=== PATIENT | female | born 1970 | race Caucasian/White ===

== ENCOUNTER → 2016-06-21 | Outpatient (CLI) | payer BC ==
--- NOTE | 2016-06-22 14:23 | MR ---
EXAM DATE: 06/21/16 PATIENT'S AGE: 46 Patient: NAIF EVERETT Facility: [facility] Site . Site : 1970 Study: MRI-Spine Cervical [id number] 11:21:31 AM Ordering Physician: Josef Mata Final Report: Indication: Neck pain. Comparison: Radiograph 06/08/2016. Technique: Sagittal T1, T2 and STIR sequences. Axial T2 gradient sequences. Findings: Straightening of the normal cervical lordosis which may be due to muscle spasm or patient positioning. Otherwise, normal vertebral body facet alignment. No fractures. No vertebral body loss of height. No spondylolisthesis. No ligamentous injury. Normal marrow signal. Normal cord signal. The visualized brainstem and cerebellum appear normal. C2-3: No spinal canal or neural foraminal narrowing. C3-4: Posterior disk bulge with no narrowing of the spinal canal. Uncovertebral facet joint hypertrophy results in mild narrowing of the left neural foramen. No narrowing of the right neural foramen. C4-5: No spinal canal narrowing. No neural foraminal narrowing. C5-6: Disc degeneration with broad-based disc osteophyte complex. Mild narrowing of spinal canal. Moderate bilateral neural foraminal narrowing with possible impingement of the C6 nerve roots. C6-7: Disc degeneration with broad-based disc osteophyte complex. Mild narrowing of left neural foramen. No narrowing of the right neural foramen. C7-T1: No spinal canal or neural foraminal narrowing. No spinal canal or neural foraminal narrowing in the visualized upper thoracic spine. Impression: 1. Straightening of the normal cervical lordosis. Otherwise, normal alignment. No fractures. No spondylolisthesis. 2. At C3-4, mild narrowing of the left neural foramen 3. At C5-6, mild narrowing of the spinal canal. Moderate bilateral foraminal narrowing with possible impingement of the C6 nerve roots 4. At C6-7, mild narrowing of the left neural foramen Dictated by Efren Reyes MD @ Jun 22 2016 8:59AM Signed by: Efren Reyes MD @06/22/2016 9:03:55 AM (Electronic Signature) Report Signed by Proxy and Original Signed Document filed in the Medical Record. [facility]
== END ==
LOC: MW.MRI 10:19
PROVIDERS: ATTEND Emergency Medicine
DX: M54.2 Cervicalgia (principal); M50.30 Other cervical disc degeneration, unspecified cervical region; M50.322 Other cervical disc degeneration at C5-C6 level
CPT/HCPCS: 72141; 72141-26

== ENCOUNTER 2018-07-09 07:46 | Day surgery (SDC) | payer BC ==
[~2018-07-09 07:46] MED LIST: Lactated Ringers 1,000 ML IV SCH; Sodium Chloride 0.9% 10 ML SDV IV PRN; Sodium Chloride 0.9% 10 ML Syringe FLUSH PRN; Sodium Chloride 0.9% 2.5 ML Syringe FLUSH PRN
--- NOTE | 2018-07-09 09:14 | PCM.PREANE ---
Preanesthetic Assessment - Anesthesia/Transfusion/Family Hx Anesthesia History: Prior Anesthesia Without Reaction Family History of Anesthesia Reaction: No Transfusion History: No Prior Transfusion(s) Intubation History: Unknown - Review of Systems General: No Symptoms Pulmonary: No Symptoms Cardiovascular: No Symptoms Gastrointestinal: Constipation Neurological: No Symptoms Other: Reports: None - Physical Assessment O2 Sat by Pulse Oximetry: 98 Respiratory Rate: 16 Vital Signs: Last Vital Signs Temp 36.1 C 07/09/18 08:10 Pulse 110 H 07/09/18 08:10 Resp 16 07/09/18 08:10 BP 95/63 07/09/18 08:10 Pulse Ox 98 07/09/18 08:10 Height: 1.63 m Weight: 62.596 kg ASA Class: 2 Mental Status: Alert & Oriented x3 Airway Class: Mallampati = 2 Dentition: Reports: Normal Dentition Thyro-Mental Finger Breadths: 3 Mouth Opening Finger Breadths: 3 ROM/Head Extension: Full Lungs: Clear to Auscultation, Normal Respiratory Effort Cardiovascular: Regular Rate, Regular Rhythm - Lab Values: Laboratory Last Values Urine HCG, Qual NEGATIVE (NEGATIVE) 07/09/18 08:00 - Allergies Allergies/Adverse Reactions: Allergies Allergy/AdvReac Type Severity Reaction Status Date / Time SEASONAL Allergy Sneezing Uncoded 07/03/18 15:26 - Blood Blood Available: No - Anesthesia Plan Pre-Op Medication Ordered: None - Acknowledgements Anesthesia Type Planned: MAC Pt an Appropriate Candidate for the Planned Anesthesia: Yes Alternatives and Risks of Anesthesia Discussed w Pt/Guardian: Yes Pt/Guardian Understands and Agrees with Anesthesia Plan: Yes PreAnesthesia Questionnaire HEENT History: Reports: Allergic Rhinitis, Other (See Below) Other HEENT History: wears glasses Cardiovascular History: Reports: Hypertension Respiratory History: Reports: None Gastrointestinal History: Reports: None Genitourinary History: Reports: None 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: Musculoskeletal History: Reports: Arthritis, Back Pain, Chronic Neurological History: Reports: Headaches, Chronic Psychiatric History: Reports: Anxiety (mild), Other (See Below) (claustrophobia) Endocrine/Metabolic History: Reports: Hypothyroidism Hematologic History: Reports: None Immunologic History: Reports: None Oncologic (Cancer) History: Reports: None Dermatologic History: Reports: None - Past Surgical History Head Surgeries/Procedures: Reports: None HEENT Surgical History: Reports: None Cardiovascular Surgical History: Reports: None Respiratory Surgical History: Reports: None GI Surgical History: Reports: None Female Surgical History: Reports: LEEP, Other (See Below) (IUD placement) Endocrine Surgical History: Reports: None Neurological Surgical History: Reports: C-Spine Other Neurological Surgeries/Procedures: ACDF Musculoskeletal Surgical History: Reports: None Oncologic Surgical History: Reports: None Dermatological Surgical History: Reports: None - SUBSTANCE USE Smoking Status *Q: Former Smoker Recreational Drug Use History: No - HOME MEDS Home Medications: Home Meds Cetirizine [ZyrTEC] 10 mg PO DAILY PRN 07/03/18 [History] Cyclobenzaprine HCl 0.5 - 1 tab PO ASDIRECTED PRN 07/03/18 [History] Levothyroxine Sodium [Synthroid] 112 mcg PO DAILY 07/03/18 [History] Metoprolol Succinate 25 mg PO DAILY 07/03/18 [History] Polyethylene Glycol 3350 [MiraLAX] 1 dose PO ASDIRECTED PRN 07/03/18 [History] traMADol HCl [Tramadol HCl] 1 - 2 tab PO ASDIRECTED PRN 07/03/18 [History] - CURRENT (IN HOUSE) MEDS Current Meds: Current Medications Lactated Ringer's (Ringers, Lactated) 1,000 mls @ 125 mls/hr IV ASDIRECTED [facility] Last Admin: 07/09/18 08:38 Dose: 125 mls/hr Sodium Chloride (Saline Flush) 10 ml FLUSH ASDIRECTED PRN PRN Reason: Keep Vein Open Sodium Chloride (Saline Flush) 2.5 ml FLUSH ASDIRECTED PRN PRN Reason: Keep Vein Open Sodium Chloride (Saline Flush) 10 ml FLUSH ASDIRECTED PRN PRN Reason: Keep Vein Open Sodium Chloride (Saline Flush) 2.5 ml FLUSH ASDIRECTED PRN PRN Reason: Keep Vein Open Sodium Chloride (Normal Saline) 10 ml IV ASDIRECTED PRN PRN Reason: IV Use
[2018-07-09] MEDS ORDERED: Propofol 200 MG/20 ML SDV ONE (10:27)
[2018-07-09] MEDS ORDERED: fentaNYL 100 MCG/2 ML SDV ONE (10:28)
[2018-07-09] MEDS ORDERED: Midazolam 1 MG/ML 2 ML SDV ONE (10:28)
[2018-07-09] MEDS ORDERED: Lidocaine 2% 5 ML SDV ONE (10:28)
--- NOTE | 2018-07-09 11:13 | PCM.OPNOTE ---
<Jessica Mathis - Last Filed: 07/09/18 11:12> - General Post-Op/Procedure Note Date of Surgery/Procedure: 07/09/18 Operative Procedure(s): colonoscopy Findings: Normal colonoscopy. Pre Op Diagnosis: Change in bowel habits Post-Op Diagnosis: Change in bowel habits Anesthesia Technique: MAC Primary Surgeon: Edilia Lozano Dial Lathe Operator: Jessica Mathis Condition: Good <Edilia Lozano - Last Filed: 07/09/18 11:16> - General Post-Op/Procedure Note Post-Op Diagnosis: Transverse colon polyp
--- NOTE | 2018-07-09 11:36 | PCM.POSTAN ---
POST ANESTHESIA ASSESSMENT - MENTAL STATUS Mental Status: Alert, Oriented - RESPIRATORY Respiratory Status: Respiratory Rate WNL, Airway Patent, O2 Saturation Stable - CARDIOVASCULAR CV Status: Pulse Rate WNL, Blood Pressure Stable - GASTROINTESTINAL GI Status: No Symptoms - PAIN Pain Score: 0 - POST OP HYDRATION Hydration Status: Adequate & Stable - OBSERVATIONS Free Text/Narrative:: Pt denies any pain.
--- NOTE | 2018-07-09 23:46 | OR ---
SURGEON: ELIANA IBARRA MD DATE OF PROCEDURE: 07/09/2018 PREOPERATIVE DIAGNOSIS: Change in bowel habits. POSTOPERATIVE DIAGNOSIS: Transverse colon polyp. ANESTHESIA: MAC. INSTRUMENT USED: Olympus colonoscope. EXTENT OF EXAM: To the cecum. PREPARATION: Good. LIMITATIONS: None. INDICATION FOR EXAMINATION: The patient is a 48-year-old female, who presents with a change in her bowel habits. Given this, we discussed the need for diagnostic colonoscopy. I explained the procedure, expected perioperative course, and risks including bleeding, infection, or damage to surrounding structures including perforation. The patient verbalized understanding and wishes to proceed. PROCEDURE IN DETAIL: The patient was brought to the endoscopy suite and placed in a left lateral decubitus position. A time-out was completed verifying the patient's name, age, date of , allergies, and procedure to be performed. Monitored anesthesia care was induced and continuous oxygen was provided via nasal cannula throughout the procedure. After adequate sedation was achieved, a digital rectal exam was performed. This exam was within normal limits. A well lubricated colonoscope was inserted in the rectum and advanced under direct visualization to the level of the cecum. The cecum was identified by both visual and anatomic landmarks. A photograph was taken of the cecal cap, however, I was unable to retroflex the scope within the cecum given the looping of the scope more proximally. The scope was then straightened out and fully withdrawn while examining the color, texture, anatomy, and integrity of the mucosa from the cecum to the anal canal. In the distal transverse colon, a small sessile polyp was noted. This was removed in piecemeal fashion using a cold biopsy forceps. The remainder of the colon was normal. The scope was brought into the rectum and retroflexed to allow visualization of the anal canal opening. This appeared normal and a photograph was taken. The scope was then straightened out and fully withdrawn. The cecum to anus time was 7 minutes. The patient tolerated the procedure well and transferred to the PACU in stable condition. ENDOSCOPIC DIAGNOSIS: Transverse colon polyp. RECOMMENDATIONS: Follow up in clinic in 2 weeks. CASIE HUMPHRIES /[id number]
== END 2018-07-09 12:30 | disposition home or self-care (01) ==
LOC: MW.SDS 07:46
PROVIDERS: ATTEND Surgery
DX: K59.00 Constipation, unspecified (principal); D12.3 Benign neoplasm of transverse colon; I10 Essential (primary) hypertension; E03.9 Hypothyroidism, unspecified; F41.9 Anxiety disorder, unspecified; Z87.891 Personal history of nicotine dependence; Z79.890 Hormone replacement therapy; Z79.899 Other long term (current) drug therapy
CPT/HCPCS: 45380; 81025; J2001; J2250; J2704; J3010; J7120; 88305

== ENCOUNTER 2019-11-20 10:40 | Day surgery (SDC) | payer BC, SELFPAY ==
[2019-11-20] MEDS ORDERED: fentaNYL 100 MCG/2 ML SDV ONE (11:46)
[2019-11-20] MEDS ORDERED: Midazolam 1 MG/ML 2 ML SDV ONE (11:46)
[2019-11-20] MEDS ORDERED: Propofol 200 MG/20 ML SDV ONE (11:46)
[2019-11-20] MEDS ORDERED: Lidocaine 2% 5 ML SDV ONE (11:47)
--- NOTE | 2019-11-20 11:54 | PCM.PREANE ---
Preanesthetic Assessment - Anesthesia/Transfusion/Family Hx Anesthesia History: Prior Anesthesia Without Reaction Family History of Anesthesia Reaction: No Transfusion History: No Prior Transfusion(s) Intubation History: Unknown - Review of Systems General: No Symptoms Pulmonary: No Symptoms Cardiovascular: No Symptoms Neurological: No Symptoms Other: Reports: None - Physical Assessment NPO Status Date: 11/20/19 NPO Status Time: 08:00 Vital Signs: Last Vital Signs Temp 99.3 F 11/20/19 10:40 Pulse 79 11/20/19 10:40 Resp 16 11/20/19 10:40 BP 125/85 11/20/19 10:40 Pulse Ox 97 11/20/19 10:40 Height: 5 ft 3 in Weight: 63.957 kg ASA Class: 2 Mental Status: Alert & Oriented x3 Airway Class: Mallampati = 2 Dentition: Reports: Normal Dentition ROM/Head Extension: Full Lungs: Clear to Auscultation, Normal Respiratory Effort Cardiovascular: Regular Rate, Regular Rhythm - Lab Values: Laboratory Last Values Urine HCG, Qual NEGATIVE (NEGATIVE) 11/20/19 10:46 - Allergies Allergies/Adverse Reactions: Allergies Allergy/AdvReac Type Severity Reaction Status Date / Time SEASONAL Allergy Sneezing Uncoded 11/14/19 12:49 - Blood Blood Available: No - Anesthesia Plan Pre-Op Medication Ordered: None - Acknowledgements Anesthesia Type Planned: General Anesthesia (tiva) Pt an Appropriate Candidate for the Planned Anesthesia: Yes Alternatives and Risks of Anesthesia Discussed w Pt/Guardian: Yes Pt/Guardian Understands and Agrees with Anesthesia Plan: Yes PreAnesthesia Questionnaire HEENT History: Reports: Allergic Rhinitis, Other (See Below) Other HEENT History: wears glasses Cardiovascular History: Reports: Hypertension Respiratory History: Reports: None Other Respiratory History: denies any lung problems, has a prescribed inhaler for cough Gastrointestinal History: Reports: None Other Gastrointestinal History: c/o nausea Genitourinary History: Reports: None 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: Musculoskeletal History: Reports: Arthritis, Back Pain, Chronic Other Musculoskeletal History: DDD Neurological History: Reports: Headaches, Chronic Psychiatric History: Reports: Anxiety, Other (See Below) Endocrine/Metabolic History: Reports: Hypothyroidism Hematologic History: Reports: None Immunologic History: Reports: None Oncologic (Cancer) History: Reports: None Dermatologic History: Reports: None - Past Surgical History Head Surgeries/Procedures: Reports: None HEENT Surgical History: Reports: None Cardiovascular Surgical History: Reports: None Respiratory Surgical History: Reports: None GI Surgical History: Reports: None Female Surgical History: Reports: LEEP, Other (See Below) Endocrine Surgical History: Reports: None Neurological Surgical History: Reports: C-Spine Other Neurological Surgeries/Procedures: ACDF Musculoskeletal Surgical History: Reports: None Oncologic Surgical History: Reports: None Dermatological Surgical History: Reports: None - SUBSTANCE USE Smoking Status *Q: Former Smoker Tobacco Use Within Last Twelve Months: No - HOME MEDS Home Medications: Home Meds Cetirizine [ZyrTEC] 10 mg PO DAILY PRN 07/03/18 [History] Cyclobenzaprine HCl 2 tab PO ASDIRECTED PRN 07/03/18 [History] Levothyroxine Sodium [Synthroid] 137 mcg PO DAILY 07/03/18 [History] Metoprolol Succinate 25 mg PO DAILY 07/03/18 [History] polyethylene glycoL 3350 [MiraLAX] 1 dose PO ASDIRECTED PRN 07/03/18 [History] traMADol HCl [Tramadol HCl] 1 - 2 tab PO ASDIRECTED PRN 07/03/18 [History] Hydrochloride 4 mg PO ASDIRECTED PRN 11/14/19 [History] Meloxicam 15 mg PO DAILY 11/14/19 [History] Omeprazole 20 mg PO DAILY 11/14/19 [History] SUMAtriptan succinate [Imitrex] 100 mg PO ASDIRECTED PRN 11/14/19 [History] traZODone HCl [Trazodone HCl] 1 - 2 tab PO BEDTIME PRN 11/14/19 [History] - CURRENT (IN HOUSE) MEDS Current Meds: Current Medications Lactated Ringer's (Ringers, Lactated) 1,000 mls @ 125 mls/hr IV ASDIRECTED [facility] Last Admin: 11/20/19 11:07 Dose: 125 mls/hr Documented by: Sodium Chloride (Saline Flush) 10 ml FLUSH ASDIRECTED PRN PRN Reason: Keep Vein Open Sodium Chloride (Saline Flush) 2.5 ml FLUSH ASDIRECTED PRN PRN Reason: Keep Vein Open Sodium Chloride (Saline Flush) 10 ml FLUSH ASDIRECTED PRN PRN Reason: Keep Vein Open Sodium Chloride (Saline Flush) 2.5 ml FLUSH ASDIRECTED PRN PRN Reason: Keep Vein Open Sodium Chloride (Normal Saline) 10 ml IV ASDIRECTED PRN PRN Reason: IV Use Discontinued Medications Fentanyl (Sublimaze) Confirm Administered Dose 100 mcg .ROUTE .STK-MED ONE Stop: 11/20/19 11:47 Lidocaine (Xylocaine-Mpf 2%) Confirm Administered Dose 5 ml .ROUTE .STK-MED ONE Stop: 11/20/19 11:48 Midazolam HCl (Versed 1 Mg/Ml) Confirm Administered Dose 2 mg .ROUTE .STK-MED ONE Stop: 11/20/19 11:47 Propofol (Diprivan 20 Ml) Confirm Administered Dose 200 mg .ROUTE .STK-MED ONE Stop: 11/20/19 11:47
--- NOTE | 2019-11-20 13:26 | PCM.OPNOTE ---
- General Post-Op/Procedure Note Date of Surgery/Procedure: 11/20/19 Operative Procedure(s): Diagnostic EGD Findings: normal appearing egd Pre Op Diagnosis: History of h. pylori, nausea Post-Op Diagnosis: same Anesthesia Technique: MAC Primary Surgeon: Edilia Lozano Condition: Good
--- NOTE | 2019-11-20 13:45 | PCM.POSTAN ---
POST ANESTHESIA ASSESSMENT - MENTAL STATUS Mental Status: Alert, Oriented - VITAL SIGNS Vital Signs: Last Vital Signs Temp 98.4 F 11/20/19 13:19 Pulse 86 11/20/19 13:36 Resp 11 L 11/20/19 13:36 BP 124/82 11/20/19 13:36 Pulse Ox 95 11/20/19 13:36 - RESPIRATORY Respiratory Status: Respiratory Rate WNL, Airway Patent, O2 Saturation Stable - CARDIOVASCULAR CV Status: Pulse Rate WNL, Blood Pressure Stable - GASTROINTESTINAL GI Status: No Symptoms - POST OP HYDRATION Hydration Status: Adequate & Stable
--- NOTE | 2019-11-20 13:45 | PCM48HPAN ---
Post Anesthesia Note - EVALUATION WITHIN 48HRS OF ANESTHETIC Vital Signs in Normal Range: Yes Patient Participated in Evaluation: Yes Respiratory Function Stable: Yes Airway Patent: Yes Cardiovascular Function Stable: Yes Hydration Status Stable: Yes Pain Control Satisfactory: Yes Nausea and Vomiting Control Satisfactory: Yes Mental Status Recovered: Yes Vital Signs: Last Vital Signs Temp 98.4 F 11/20/19 13:19 Pulse 86 11/20/19 13:36 Resp 11 L 11/20/19 13:36 BP 124/82 11/20/19 13:36 Pulse Ox 95 11/20/19 13:36
--- NOTE | 2019-11-21 17:14 | OR ---
SURGEON: EDILIA LOZANO MD DATE OF PROCEDURE: 11/20/2019 PREOPERATIVE DIAGNOSIS: History of Helicobacter pylori. POSTOPERATIVE DIAGNOSIS: History of Helicobacter pylori. PROCEDURE PERFORMED: Diagnostic esophagogastroduodenoscopy with biopsy. PRIMARY SURGEON: Edilia Lozano MD ANESTHESIA: MAC. INSTRUMENT USED: Olympus endoscope. EXTENT OF EXAM: To the second portion of duodenum. PREPARATION: Good. LIMITATIONS: None. INDICATIONS FOR EXAMINATION: The patient is a 49-year-old female who presented to clinic status post H. pylori treatment. She continues to have malaise, nausea, and upper abdominal discomfort. The decision was made to proceed with diagnostic EGD. The patient and I discussed the procedure, expected perioperative course, and the risks. She verbalized understanding and wishes to proceed. PROCEDURE IN DETAIL: The patient was brought into the endoscopy suite and placed in a beach chair position. A time-out was completed verifying the patient's name, age, date of , allergies, and procedure to be performed. Monitored anesthesia care was induced and a bite block was placed in the patient's mouth. Continuous oxygen was provided via nasal cannula throughout the procedure. After adequate sedation was achieved, a well-lubricated endoscope was placed in the patient's mouth and advanced under direct visualization to the second portion of the duodenum. This appeared normal and a photograph was taken. The scope was then fully withdrawn while examining the color, texture, anatomy, and integrity of the mucosa of the upper GI tract. The duodenum appeared normal. The scope was brought into the stomach and a photograph was taken of the pylorus and GE junction. Both appeared normal. The gastric mucosa was free of ulceration or gross inflammation. Biopsies were taken of the gastric antrum, body, and fundus and sent for histologic review and H. pylori testing. The scope was then brought into the distal esophagus and a photograph was taken of the Z-line. This appeared normal and a photograph was taken. The scope was then fully withdrawn. The remainder of the esophageal mucosa was free of pathology. The scope was removed and the procedure terminated. The patient tolerated the procedure well and was transferred to the PACU in stable condition. ENDOSCOPIC DIAGNOSIS: History of Helicobacter pylori. RECOMMENDATIONS: We will follow up in clinic in 2 weeks to discuss her biopsy results and begin workup for biliary pathology. CASIE / YANDEL /[id number]
== END 2019-11-20 14:00 | disposition home or self-care (01) ==
LOC: MW.SDS 10:40
PROVIDERS: ATTEND Surgery
DX: K29.50 Unspecified chronic gastritis without bleeding (principal); D50.0 Iron deficiency anemia secondary to blood loss (chronic); G56.03 Carpal tunnel syndrome, bilateral upper limbs; I10 Essential (primary) hypertension; E03.9 Hypothyroidism, unspecified; G47.00 Insomnia, unspecified; F41.9 Anxiety disorder, unspecified; Z79.899 Other long term (current) drug therapy; Z87.891 Personal history of nicotine dependence; Z86.19 Personal history of other infectious and parasitic diseases
CPT/HCPCS: 43239; 81025; 88305; 88312; J2001; J2250; J2704; J3010; J7120

== ENCOUNTER 2019-12-25 09:20 | Day surgery (SDC) | payer BC ==
[~2019-12-25 09:20] MED LIST changes: +ceFAZolin 2 GM in Premix Bag 1 BAG IV ONE
--- NOTE | 2019-12-25 10:15 | PCM.PREANE ---
Preanesthetic Assessment - Anesthesia/Transfusion/Family Hx Anesthesia History: Prior Anesthesia Without Reaction Family History of Anesthesia Reaction: No Transfusion History: No Prior Transfusion(s) Intubation History: Unknown - Review of Systems General: No Symptoms Pulmonary: No Symptoms Cardiovascular: No Symptoms Gastrointestinal: Nausea, Other (biliary diskenisia) Neurological: No Symptoms Other: Reports: None - Physical Assessment Height: 5 ft 3 in Weight: 63.957 kg ASA Class: 2 Mental Status: Alert & Oriented x3 Airway Class: Mallampati = 1 Dentition: Reports: Normal Dentition Thyro-Mental Finger Breadths: 3 Mouth Opening Finger Breadths: 3 ROM/Head Extension: Full Lungs: Clear to Auscultation, Normal Respiratory Effort Cardiovascular: Regular Rate, Regular Rhythm - Allergies Allergies/Adverse Reactions: Allergies Allergy/AdvReac Type Severity Reaction Status Date / Time SEASONAL Allergy Sneezing Uncoded 11/14/19 12:49 - Blood Blood Available: No - Anesthesia Plan Pre-Op Medication Ordered: None - Acknowledgements Anesthesia Type Planned: General Anesthesia Pt an Appropriate Candidate for the Planned Anesthesia: Yes Alternatives and Risks of Anesthesia Discussed w Pt/Guardian: Yes Pt/Guardian Understands and Agrees with Anesthesia Plan: Yes PreAnesthesia Questionnaire HEENT History: Reports: Allergic Rhinitis, Other (See Below) Other HEENT History: wears glasses Cardiovascular History: Reports: Hypertension Respiratory History: Reports: Other (See Below) Other Respiratory History: denies any lung problems, has a prescribed inhaler for cough Gastrointestinal History: Reports: Colon Polyp, Gastritis, Other (See Below) Other Gastrointestinal History: biliary dyskinesia Genitourinary History: Reports: None 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: Musculoskeletal History: Reports: Arthritis, Back Pain, Chronic Other Musculoskeletal History: DDD Neurological History: Reports: Migraines Psychiatric History: Reports: Anxiety Endocrine/Metabolic History: Reports: Hypothyroidism Hematologic History: Reports: None Immunologic History: Reports: None Oncologic (Cancer) History: Reports: None Dermatologic History: Reports: None - Past Surgical History Head Surgeries/Procedures: Reports: None HEENT Surgical History: Reports: None Cardiovascular Surgical History: Reports: None Respiratory Surgical History: Reports: None GI Surgical History: Reports: Colonoscopy, EGD Female Surgical History: Reports: LEEP Endocrine Surgical History: Reports: None Neurological Surgical History: Reports: C-Spine Other Neurological Surgeries/Procedures: cervical fusion Musculoskeletal Surgical History: Reports: None Oncologic Surgical History: Reports: None Dermatological Surgical History: Reports: None - SUBSTANCE USE Smoking Status *Q: Former Smoker Tobacco Use Within Last Twelve Months: No - HOME MEDS Home Medications: Home Meds Cetirizine [ZyrTEC] 10 mg PO DAILY PRN 07/03/18 [History] Cyclobenzaprine HCl 1 tab PO ASDIRECTED PRN 07/03/18 [History] Levothyroxine Sodium [Synthroid] 137 mcg PO ASDIRECTED 07/03/18 [History] Metoprolol Succinate 25 mg PO BEDTIME 07/03/18 [History] polyethylene glycoL 3350 [MiraLAX] 1 dose PO ASDIRECTED PRN 07/03/18 [History] traMADol HCl [Tramadol HCl] 1 - 2 tab PO ASDIRECTED PRN 07/03/18 [History] Meloxicam 15 mg PO DAILY 11/14/19 [History] Omeprazole 20 mg PO DAILY 11/14/19 [History] SUMAtriptan succinate [Imitrex] 100 mg PO ASDIRECTED PRN 11/14/19 [History] traZODone HCl [Trazodone HCl] 1 - 2 tab PO BEDTIME PRN 11/14/19 [History] Albuterol [Proair HFA] 1 - 2 puff INH ASDIRECTED PRN 12/19/19 [History] Scopolamine [Transderm-Scop] 1 patch TRDERM ONETIME 12/19/19 [History] ondansetron HCL [Zofran] 4 mg PO ASDIRECTED PRN 12/19/19 [History] - CURRENT (IN HOUSE) MEDS Current Meds: Current Medications Lactated Ringer's (Ringers, Lactated) 1,000 mls @ 125 mls/hr IV ASDIRECTED [facility] Sodium Chloride (Saline Flush) 2.5 ml FLUSH ASDIRECTED PRN PRN Reason: Keep Vein Open Sodium Chloride (Normal Saline) 10 ml IV ASDIRECTED PRN PRN Reason: IV Use Sodium Chloride (Saline Flush) 10 ml FLUSH ASDIRECTED PRN PRN Reason: Keep Vein Open Discontinued Medications Cefazolin Sodium/Dextrose 2 gm (/ Premix) 50 mls @ 100 mls/hr IV ONETIME ONE Stop: 12/24/19 10:55 Acetaminophen (Ofirmev) Confirm Administered Dose 100 mls @ as directed .ROUTE .STK-MED ONE Stop: 12/25/19 07:04
[2019-12-25] MEDS ORDERED: Ondansetron 4 MG/2 ML SDV ONE (10:34)
[2019-12-25] MEDS ORDERED: fentaNYL 100 MCG/2 ML SDV ONE (10:34)
[2019-12-25] MEDS ORDERED: Midazolam 1 MG/ML 2 ML SDV ONE (10:34)
[2019-12-25] MEDS ORDERED: Propofol 200 MG/20 ML SDV ONE ×2 (10:34→11:05)
[2019-12-25] MEDS ORDERED: Succinylcholine/Sod PF 100 MG/5 ML SYRINGE IV ONE (10:35)
[2019-12-25] MEDS ORDERED: Glycopyrrolate 0.2 MG/ML SDV ONE ×2 (10:35→13:04)
[2019-12-25] MEDS ORDERED: Rocuronium Bromide 50 MG/5 ML Syringe ONE (10:35)
[2019-12-25] MEDS ORDERED: Dexamethasone 4 MG/ML 5 ML MDV ONE (10:35)
[2019-12-25] MEDS ORDERED: Ketorolac 30 MG/ML SDV ONE (10:35)
[2019-12-25] MEDS ORDERED: Morphine 10 MG/ML Syringe ONE (10:41)
[2019-12-25] MEDS ORDERED: ceFAZolin/Dextrose,Iso-Osmotic 2 GM/50 ML Duplex Bag IV ONE (10:42)
[2019-12-25] MEDS ORDERED: Octyl 2-Cyanoacrylate 1 Tube ONE (11:38)
[2019-12-25] MEDS ORDERED: Bupivacaine 0.5% 30 ML SDV ONE (11:38)
[2019-12-25] MEDS ORDERED: Morphine 4 MG/ML Syringe IVPUSH ONE (12:30)
[2019-12-25] MEDS ORDERED: ePHEDrine 50 MG/ML SDV ONE (12:43)
--- NOTE | 2019-12-25 13:28 | PCM.OPNOTE ---
- General Post-Op/Procedure Note Date of Surgery/Procedure: 12/25/19 Operative Procedure(s): Laparoscopic cholecystectomy Findings: Normal appearing gallbladder however the body was adhered to the surrounding omentum Pre Op Diagnosis: Biliary dyskinesia Post-Op Diagnosis: same Anesthesia Technique: General ET Tube Primary Surgeon: Edilia Lozano Fluid Replacement, Intraop: 1,800 Output, Urine Amount: 250 EBL in mLs: 5 Condition: Good Free Text/Narrative:: Intake & Output 12/24/19 12/25/19 12/25/19 22:59 06:59 14:59 Output Total 250 Balance -250
[2019-12-25] MEDS ORDERED: Acetaminophen/oxyCODONE 325-5 MG Tab PO PRN (13:31)
--- NOTE | 2019-12-25 13:52 | PCM.POSTAN ---
POST ANESTHESIA ASSESSMENT - MENTAL STATUS Mental Status: Alert, Oriented - VITAL SIGNS Vital Signs: Last Vital Signs Temp 36.6 C 12/25/19 13:21 Pulse 53 L 12/25/19 13:46 Resp 20 12/25/19 13:46 BP 127/71 12/25/19 13:46 Pulse Ox 98 12/25/19 13:46 - RESPIRATORY Respiratory Status: Respiratory Rate WNL, Airway Patent, O2 Saturation Stable - CARDIOVASCULAR CV Status: Pulse Rate WNL - GASTROINTESTINAL GI Status: No Symptoms - PAIN Pain Score: 1 Free Text/Narrative:: Some soreness. - POST OP HYDRATION Hydration Status: Adequate & Stable (Doing well. Will move to phase 2 in good condition.)
--- NOTE | 2019-12-25 14:49 | PCM48HPAN ---
Post Anesthesia Note - EVALUATION WITHIN 48HRS OF ANESTHETIC Vital Signs in Normal Range: Yes Patient Participated in Evaluation: Yes Respiratory Function Stable: Yes Cardiovascular Function Stable: Yes Hydration Status Stable: Yes Pain Control Satisfactory: Yes (Soreness 1-2) Nausea and Vomiting Control Satisfactory: Yes (Taking fluids without issues.) Mental Status Recovered: Yes Vital Signs: Last Vital Signs Temp 36.6 C 12/25/19 13:21 Pulse 53 L 12/25/19 13:46 Resp 20 12/25/19 13:46 BP 127/71 12/25/19 13:46 Pulse Ox 98 12/25/19 13:46 - COMMENTS/OBSERVATIONS Free Text/Narrative:: Doing well. Adequate for discharge.
--- NOTE | 2019-12-25 14:50 | OR ---
SURGEON: EDILIA IBARRA MD DATE OF PROCEDURE: 12/25/2019 PREOPERATIVE DIAGNOSIS: Biliary dyskinesia. POSTOPERATIVE DIAGNOSIS: Biliary dyskinesia. PROCEDURE PERFORMED: Laparoscopic cholecystectomy. PRIMARY SURGEON: Edilia Ibarra MD ASSISTANT MANAGER RETAIL: assistant prosecuting attorney: George Luo MD ANESTHESIA: General endotracheal anesthesia. FLUIDS: 1800 mL of crystalloid. ESTIMATED BLOOD LOSS: 5 mL. URINE OUTPUT: 250 mL. FINDINGS: Normal-appearing gallbladder other than the gallbladder having adhesions to the surrounding omentum. COMPLICATIONS: None. INDICATIONS: The patient is a 49-year-old female whom I recently treated for an H. pylori infection. Despite successful treatment, the patient continued to have postprandial nausea and vomiting. She underwent a HIDA scan that showed an ejection fraction of 31%. The HIDA scan reproduced the symptoms she was having. The decision was made to proceed with a laparoscopic, possible open, cholecystectomy. I explained the procedure, expected perioperative course, and risks. She verbalized understanding and wishes to proceed. PROCEDURE IN DETAIL: The patient was brought into the OR and placed on the OR table in supine position. A time-out was completed verifying the patient's name, age, date of , allergies, and procedure to be performed. General endotracheal anesthesia was induced. The left arm was tucked to the patient's side and a Davidson catheter placed. The abdomen was prepped and draped in usual standard fashion. I anesthetized the infraumbilical fold with 0.5% Marcaine plain. An incision was made using an 11 blade through the infraumbilical fold. Cautery was used to dissect down to the layer of the subcutaneous fat. I then bluntly dissected down to the fascia. The fascia was elevated with Kim's and incised sharply with curved Ruiz scissors. I identified the posterior fascia. This was elevated with hemostats and incised sharply as well. The peritoneum was then entered bluntly using a hemostat. I palpated through my defect until I was in the abdomen. Stay sutures were placed on either side of the fascia using 0 Vicryl sutures. A 12 mm Julio C trocar was inserted in the abdomen. The abdomen was insufflated and a 5 mm 30-degree scope was inserted. I inspected the area underneath my initial trocar placement. No damage to surrounding structures was noted. The patient was placed into reverse Trendelenburg position and airplaned slightly to the left. 5 mm trocars were placed in the following locations under direct visualization; one in the epigastric area, one in the right flank, and one 2 fingerbreadths below the right subcostal margin in the midclavicular line. The dome of the gallbladder was grasped and elevated cranially. The body of the gallbladder was adhered to the surrounding omentum. Using hook cautery and blunt dissection, I was able to take down these adhesions down to the level of the infundibulum. The infundibulum was also covered in wispy adhesions. These were taken down using hook cautery and blunt dissection. I then began my dissection along the cystic plate using hook cautery. I was able to clear away approximately one-third of the cystic plate. I identified my cystic duct and the node of Calot. As I was taking down the node with hook cautery, I noticed that there was a small artery associated with it. I cauterized this during my dissection. This appeared to be the artery. A single clip was placed on the proximal end of this. The area was hemostatic. I continued my dissection around the cystic duct. Once this was completely cleared away as well as the one-third of the cystic plate, a photograph was taken. I doubly clipped and ligated my cystic duct as close to the gallbladder as I could. The remainder of the attachments of the gallbladder were taken down using hook cautery. Along the distal one-third of the cystic plate, a small rent was made in the gallbladder and bile was spilled into the abdomen. The gallbladder was removed from the liver bed and placed in an Endo Catch bag. I then irrigated the abdomen with 1 L of normal saline and suctioned this clear. A photograph was then taken of my operative field. There was no bile leakage and the area was hemostatic. The 5 mm trocars were then removed under direct visualization. The 12 mm Julio C trocar and Endo Catch bag were removed through the infraumbilical port site. I then closed the fascia at the infraumbilical port site using interrupted 0 Vicryl sutures. The subcutaneous fat layer was closed with interrupted 3-0 Vicryl stitch. The skin was closed with a running 4-0 Monocryl stitch. The 5 mm trocars were closed with interrupted 4-0 Monocryl suture. Steri-Strips and sterile dressings were applied. The patient tolerated the procedure well and was transferred to the PACU in stable condition. All counts were complete and correct at the end of the case. CASIE HUMPHRIES /[id number]
== END 2019-12-25 15:38 | disposition home or self-care (01) ==
LOC: MW.SDS 09:20
PROVIDERS: ATTEND Surgery
DX: K81.1 Chronic cholecystitis (principal); K82.8 Other specified diseases of gallbladder; K29.70 Gastritis, unspecified, without bleeding; I10 Essential (primary) hypertension; F41.9 Anxiety disorder, unspecified; E03.9 Hypothyroidism, unspecified; Z87.891 Personal history of nicotine dependence; Z79.890 Hormone replacement therapy; Z79.899 Other long term (current) drug therapy
CPT/HCPCS: 47562; 81025; J0131; J0330; J0690; J1100; J1885; J2250; J2270; J2405; J2704; J3010; J3490; J7120; 00790; A9270-GY

== ENCOUNTER 2020-12-21 05:35 | Emergency (ER) | payer BC ==
[2020-12-21] MEDS ORDERED: Alum Hydrox/Mag Hydrox/Simeth 15 ML, Lidocaine 2% 5 ML PO ONE ×2 (06:05)
[2020-12-21] MEDS ORDERED: Sodium Chloride 0.9% 1,000 ML IV ONE (06:05)
[2020-12-21] MEDS ORDERED: Sodium Chloride 0.9% 10 ML Syringe FLUSH PRN (06:05)
[2020-12-21] MEDS ORDERED: Sodium Chloride 0.9% 2.5 ML Syringe FLUSH PRN (06:05)
--- NOTE | 2020-12-21 06:05 | EDM.PDOC ---
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 Patient reports that she was walking around getting her materials ready to do blood work today when the pain began. Patient reports that it initially felt like a burning sensation but did not feel like typical heartburn to her. Patient reports that she had associated shortness of breath and nausea with it. Patient reports some discomfort to her left arm. Patient reports no significant change with exertion or ambulation however while she is sitting here in the ED she reports she feels significantly better. Patient denies any diaphoresis with the discomfort. Patient denies any history of diabetes, liver, lung, kidney problems. Patient denies any prior history of CAD or strokes in the past. Patient reports she is never had a prior exercise stress test or cardiac catheterization. Patient denies any recent fevers, shakes, chills, vomiting or diarrhea. Patient reports she did have nausea with the chest discomfort. Patient denies any URI symptoms. Patient has any cough cold or rhinorrhea. Patient reports she has had both Covid vaccinations. Patient denies any abdominal pain or discomfort. Patient reports that the pain is similar to pain she has had with her gallbladder. Review of systems: As per history of present illness and below otherwise all systems reviewed and negative. Past medical history: As per history of present illness and as reviewed below otherwise noncontributory. Surgical history: As per history of present illness and as reviewed below otherwise noncontributory. Social history: No reported history of drug abuse. Family history: As per history of present illness and as reviewed below otherwise noncontributory. Physical exam: This patient was seen and evaluated during the 2019 SARS-CoV-2 novel coronavirus pandemic period. Community viral transmission is ongoing at time of this encounter and the emergency department is operating under pandemic response procedures. Constitutional: Patient is oriented to person, place, and time. Appears well- developed and well-nourished. No distress. HEENT: Moist mucous membranes Head: Normocephalic and atraumatic Eyes: Right eye exhibits no discharge. Left eye exhibits no discharge. No scleral icterus Neck: Normal range of motion. No tracheal deviation present. Cardiovascular: Normal rate and regular rhythm. Pulmonary: Effort normal, no respiratory distress. Abdominal: No distention Musculoskeletal: Normal range of motion Neurologic: Alert and oriented to person, place and time. Skin: [place], warm and dry. Psychiatric: Normal mood and affect. Behavior is normal. Judgment and thought content normal. Nursing note and vital signs have been reviewed Diagnostics: EKG: As interpreted by ER physician: Ishan: Nonspecific ST-T wave abnormalities Normal axis No evidence of ST elevation TN Normal sinus rhythm heart rate of 57 December 21, 2020 5:20 AM Therapeutics: [] Assessment and plan: This is a 50-year-old female with history significant for hypertension who presents to the ER today secondary to severe pain and discomfort in her midsternal area that was radiating to her back and shoulders. Patient had associated shortness of breath and nausea with the discomfort. Patient has not had a prior cardiac work-up in the past. Patient will obtain CBC, CMP, troponin, D-dimer, BNP. Given the discomfort radiating to her back and shoulders I will obtain a CTA of her chest. Patient currently is comfortable and near pain-free while sitting in the chair. She reports that this is why she felt earlier that she would not have come to the ED and she would have continued work. Definitive disposition and diagnosis as appropriate pending reevaluation and review of above. Middle Chest Pain Score (Numeric/FACES): 5 - Related Data Allergies Allergy/AdvReac Type Severity Reaction Status Date / Time SEASONAL Allergy Sneezing Uncoded 12/25/19 10:54 Home Meds: Home Meds Cetirizine [ZyrTEC] 10 mg PO DAILY PRN 07/03/18 [History] Cyclobenzaprine HCl 1 tab PO ASDIRECTED PRN 07/03/18 [History] Levothyroxine Sodium [Synthroid] 137 mcg PO ASDIRECTED 07/03/18 [History] polyethylene glycoL 3350 [MiraLAX] 1 dose PO ASDIRECTED PRN 07/03/18 [History] traMADol HCl [Tramadol HCl] 1 - 2 tab PO ASDIRECTED PRN 07/03/18 [History] Meloxicam 15 mg PO DAILY 11/14/19 [History] SUMAtriptan succinate [Imitrex] 100 mg PO ASDIRECTED PRN 11/14/19 [History] traZODone HCl [Trazodone HCl] 1 - 2 tab PO BEDTIME PRN 11/14/19 [History] Albuterol [Proair HFA] 1 - 2 puff INH ASDIRECTED PRN 12/19/19 [History] Losartan Potassium 25 mg PO DAILY 12/21/20 [History] Past Medical History HEENT History: Reports: Allergic Rhinitis, Other (See Below) Other HEENT History: wears glasses Cardiovascular History: Reports: Hypertension Respiratory History: Reports: Other (See Below) Other Respiratory History: denies any lung problems, has a prescribed inhaler for cough Gastrointestinal History: Reports: Colon Polyp, Gastritis, Other (See Below) Other Gastrointestinal History: biliary dyskinesia Genitourinary History: Reports: None 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: Musculoskeletal History: Reports: Arthritis, Back Pain, Chronic Other Musculoskeletal History: DDD Neurological History: Reports: Migraines Psychiatric History: Reports: Anxiety, Other (See Below) Other Psychiatric History: "trouble sleeping" Endocrine/Metabolic History: Reports: Hypothyroidism Hematologic History: Reports: None Immunologic History: Reports: None Oncologic (Cancer) History: Reports: None Dermatologic History: Reports: None - Past Surgical History Head Surgeries/Procedures: Reports: None HEENT Surgical History: Reports: None Cardiovascular Surgical History: Reports: None Respiratory Surgical History: Reports: None GI Surgical History: Reports: Colonoscopy, EGD Female Surgical History: Reports: LEEP Endocrine Surgical History: Reports: None Neurological Surgical History: Reports: C-Spine Other Neurological Surgeries/Procedures: cervical fusion Musculoskeletal Surgical History: Reports: None Oncologic Surgical History: Reports: None Dermatological Surgical History: Reports: None Social & Family History - Family History Family Medical History: No Pertinent Family History - Tobacco Use Tobacco Use Status *Q: Never Tobacco User Second Hand Smoke Exposure: No - Recreational Drug Use Recreational Drug Use: No ED ROS GENERAL - Review of Systems Review Of Systems: See Below ED EXAM, GENERAL - Physical Exam Exam: See Below Departure - Departure Disposition: Home, Self-Care 01 Clinical Impression: Chest pain Qualifiers: Chest pain type: unspecified Qualified Code(s): R07.9 - Chest pain, unspecified - Discharge Information Instructions: Nonspecific Chest Pain, Adult Referrals: PCP,None [Primary Care Provider] - Forms: ED Department Discharge Additional Instructions: Please follow-up with cardiology or your primary care physician. Information for cardiology is provided below. You were also placed on the cardiology follow-up list so they may be calling you to help set up an appointment. If you experience return of chest pain or difficulty breathing you should come back to the hospital for reassessment. [facility] [address] [place] [id number] The following information is given to patients seen in the emergency department who are being discharged to home. This information is to outline your options for follow-up care. We provide all patients seen in our emergency department with a follow-up referral. The need for follow-up, as well as the timing and circumstances, are variable depending upon the specifics of your emergency department visit. If you don't have a primary care physician on staff, we will provide you with a referral. We always advise you to contact your personal physician following an emergency department visit to inform them of the circumstance of the visit and for follow-up with them and/or the need for any referrals to a consulting specialist. The emergency department will also refer you to a specialist when appropriate. This referral assures that you have the opportunity for follow-up care with a specialist. All of these measure are taken in an effort to provide you with optimal care, which includes your follow-up. Under all circumstances we always encourage you to contact your private physician who remains a resource for coordinating your care. When calling for follow-up care, please make the office aware that this follow-up is from your recent emergency room visit. If for any reason you are refused follow-up, please contact the [facility] Emergency Department at and asked to speak to the emergency department charge nurse. Please follow up with your primary care physician. If you do not have a primary care physician, see below: [facility] [address] [place] [id number] [facility] [address] [place] [id number] [facility] [address] [place] [address] Sepsis Event Note (ED) - Evaluation Sepsis Screening Result: No Definite Risk <Jose Cervantes - Last Filed: 12/21/20 09:35> Course - Vital Signs Last Recorded V/S: Last Vital Signs Temp 97.4 F 12/21/20 05:52 Pulse 67 12/21/20 07:17 Resp 14 12/21/20 07:17 BP 119/88 12/21/20 07:17 Pulse Ox 98 12/21/20 07:17 - Orders/Labs/Meds Orders: Active Orders 24 hr Category Date Time Status Ang Chest [CT] Stat Exams 12/21/20 06:06 Taken Sodium Chloride 0.9% [Saline Flush] Med 12/21/20 06:05 Active 10 ml FLUSH ASDIRECTED PRN Sodium Chloride 0.9% [Saline Flush] Med 12/21/20 06:05 Active 2.5 ml FLUSH ASDIRECTED PRN Saline Lock Insert [OM.PC] Stat Oth 12/21/20 06:05 Ordered Medication Orders Sodium Chloride (Sodium Chloride 0.9% 10 Ml Syringe) 10 ml FLUSH ASDIRECTED PRN PRN Reason: Keep Vein Open Last Admin: 12/21/20 06:13 Dose: 10 ml Documented by: REED Sodium Chloride (Sodium Chloride 0.9% 2.5 Ml Syringe) 2.5 ml FLUSH ASDIRECTED PRN PRN Reason: Keep Vein Open Last Admin: 12/21/20 06:13 Dose: 2.5 ml Documented by: REED Labs: Laboratory Tests 12/21/20 12/21/20 12/21/20 Range/Units 05:40 05:40 05:40 WBC 6.41 (4.0-11.0) K/uL RBC 4.20 L (4.30-5.90) M/uL Hgb 13.2 (12.0-16.0) g/dL Hct 39.0 (36.0-46.0) % MCV 92.9 (80.0-98.0) fL MCH 31.4 (27.0-32.0) pg MCHC 33.8 (31.0-37.0) g/dL RDW Std Deviation 44.1 (28.0-62.0) fl RDW Coeff of Froylan 13 (11.0-15.0) % Plt Count 280 (150-400) K/uL MPV 11.40 (7.40-12.00) fL Neut % (Auto) 35.4 L (48.0-80.0) % Lymph % (Auto) 44.6 H (16.0-40.0) % [place] % (Auto) 10.1 (0.0-15.0) % Eos % (Auto) 9.4 H (0.0-7.0) % Baso % (Auto) 0.5 (0.0-1.5) % Neut # (Auto) 2.3 (1.4-5.7) K/uL Lymph # (Auto) 2.9 H (0.6-2.4) K/uL [place] # (Auto) 0.7 (0.0-0.8) K/uL Eos # (Auto) 0.6 (0.0-0.7) K/uL Baso # (Auto) 0.0 (0.0-0.1) K/uL Nucleated RBC % 0.0 /100WBC Nucleated RBCs # 0 K/uL D-Dimer, Quantitative 0.35 (0.0-0.50) mg/L FEU Sodium 138 (136-145) mmol/L Potassium 3.8 (3.5-5.1) mmol/L Chloride 103 (98-107) mmol/L Carbon Dioxide 26.2 (21.0-32.0) mmol/L BUN 15 (7.0-18.0) mg/dL Creatinine 0.8 (0.6-1.0) mg/dL Est Cr Clr Drug Dosing 68.82 mL/min Estimated GFR (MDRD) > 60.0 ml/min Glucose 96 (74-106) mg/dL Calcium 8.7 (8.5-10.1) mg/dL Total Bilirubin 0.3 (0.2-1.0) mg/dL AST 18 (15-37) IU/L ALT 25 (14-63) IU/L Alkaline Phosphatase 65 (46-116) U/L Troponin I < 0.050 (0.000-0.056) ng/mL B-Natriuretic Peptide (<100) PG/ML Total Protein 6.9 (6.4-8.2) g/dL Albumin 3.9 (3.4-5.0) g/dL Globulin 3.0 (2.6-4.0) g/dL Albumin/Globulin Ratio 1.3 (0.9-1.6) 12/21/20 12/21/20 Range/Units 05:40 08:42 WBC (4.0-11.0) K/uL RBC (4.30-5.90) M/uL Hgb (12.0-16.0) g/dL Hct (36.0-46.0) % MCV (80.0-98.0) fL MCH (27.0-32.0) pg MCHC (31.0-37.0) g/dL RDW Std Deviation (28.0-62.0) fl RDW Coeff of Froylan (11.0-15.0) % Plt Count (150-400) K/uL MPV (7.40-12.00) fL Neut % (Auto) (48.0-80.0) % Lymph % (Auto) (16.0-40.0) % [place] % (Auto) (0.0-15.0) % Eos % (Auto) (0.0-7.0) % Baso % (Auto) (0.0-1.5) % Neut # (Auto) (1.4-5.7) K/uL Lymph # (Auto) (0.6-2.4) K/uL [place] # (Auto) (0.0-0.8) K/uL Eos # (Auto) (0.0-0.7) K/uL Baso # (Auto) (0.0-0.1) K/uL Nucleated RBC % /100WBC Nucleated RBCs # K/uL D-Dimer, Quantitative (0.0-0.50) mg/L FEU Sodium (136-145) mmol/L Potassium (3.5-5.1) mmol/L Chloride (98-107) mmol/L Carbon Dioxide (21.0-32.0) mmol/L BUN (7.0-18.0) mg/dL Creatinine (0.6-1.0) mg/dL Est Cr Clr Drug Dosing mL/min Estimated GFR (MDRD) ml/min Glucose (74-106) mg/dL Calcium (8.5-10.1) mg/dL Total Bilirubin (0.2-1.0) mg/dL AST (15-37) IU/L ALT (14-63) IU/L Alkaline Phosphatase (46-116) U/L Troponin I < 0.050 (0.000-0.056) ng/mL B-Natriuretic Peptide 22 (<100) PG/ML Total Protein (6.4-8.2) g/dL Albumin (3.4-5.0) g/dL Globulin (2.6-4.0) g/dL Albumin/Globulin Ratio (0.9-1.6) Meds: Medications Generic Name Dose Route Start Last Admin Trade Name Osiel PRN Reason Stop Dose Admin Sodium Chloride 10 ml 12/21/20 06:05 12/21/20 06:13 Sodium Chloride 0.9% 10 Ml Syringe FLUSH 10 ml ASDIRECTED PRN Administration Keep Vein Open Sodium Chloride 2.5 ml 12/21/20 06:05 12/21/20 06:13 Sodium Chloride 0.9% 2.5 Ml Syringe FLUSH 2.5 ml ASDIRECTED PRN Administration Keep Vein Open Discontinued Medications Generic Name Dose Route Start Last Admin Trade Name sOiel PRN Reason Stop Dose Admin Al Hydroxide/Mg Hydroxide 15 0 ml 12/21/20 06:05 12/21/20 06:17 ml/ Lidocaine HCl 5 ml PO 12/21/20 06:06 1 each ONETIME ONE Administration Sodium Chloride 1,000 mls @ 999 mls/hr 12/21/20 06:05 12/21/20 06:12 Normal Saline IV 12/21/20 07:05 999 mls/hr .Bolus ONE Administration Iopamidol 100 ml 12/21/20 06:33 12/21/20 07:03 Iopamidol 755 Mg/Ml 100 Ml Bottle IVPUSH 12/21/20 06:34 100 ml ONETIME ONE Administration - Re-Assessments/Exams Free Text/Narrative Re-Assessment/Exam: 12/21/20 09:33 Repeat troponin is negative. CT imaging is unremarkable. Will discharge patient with cardiology follow-up. Patient understands return precautions. Departure - Departure Time of Disposition: 09:33 Condition: Good Sepsis Event Note (ED) - Focused Exam Vital Signs: Vital Signs Temp Pulse Resp BP Pulse Ox 12/21/20 07:17 67 14 119/88 98 12/21/20 05:52 97.4 F 78 16 123/69 97 12/21/20 05:40 97.1 F 76 16 123/88 96
[2020-12-21 06:31] LABS: BLOOD UREA NITROGEN,BUN 15 mg/dL (7.0-18.0); CARBON DIOXIDE,CO2 26.2 mmol/L (21.0-32.0); CHLORIDE,CL 103 mmol/L (98-107); GLUCOSE RANDOM 96 mg/dL (74-106); POTASSIUM,K 3.8 mmol/L (3.5-5.1); SODIUM,NA 138 mmol/L (136-145)
[2020-12-21] MEDS ORDERED: Iopamidol 755 Mg/ML 100 ML Bottle IVPUSH ONE (06:33)
--- NOTE | 2020-12-21 08:39 | CT ---
CLINICAL INFORMATION: 50-year-old with chest pain radiating to the back. TECHNIQUE: Noncontrast CT of the chest followed by intravenous CT angiogram of the chest, abdomen and pelvis were obtained. No enteric contrast was administered and therefore the study has decreased sensitivity for detection of bowel pathology. 3D and/or MIP angiographic reconstructions were performed on a separate independent workstation with concurrent supervision of the image post processing in order to further delineate the angiographic anatomy for accurate interpretation. Contrast: 100 mL of Isovue 370 intravenous contrast was injected uneventfully prior to image acquisition. Radiation Dose Estimate (Total Exam DLP): 568.1 mGy-cm. COMPARISON: None available. FINDINGS: CT Angiography Findings: Thoracic Aorta: Scattered atherosclerotic disease. No aneurysm or dissection. Great Vessels: Patent. Abdominal aorta: Scattered atherosclerotic disease. No aneurysm or dissection. Celiac axis: Patent. Superior mesenteric artery: Patent. Inferior mesenteric artery: Patent. LEFT Renal: Patent. RIGHT Renal: Patent. RIGHT lower extremity : Common iliac artery: Patent. Internal iliac artery: Patent. External iliac artery: Patent. Common femoral artery: Patent. LEFT lower extremity: Common iliac artery: Patent. Internal iliac artery: Patent. External iliac artery: Patent. Common femoral artery: Patent. Visceral Findings: Chest: Thyroid: Unremarkable Lungs: Mild bibasilar dependent atelectatic changes. No focal airspace opacities or pleural effusions. Heart/Pericardium: Unremarkable. Lymph Nodes: No significant axillary, mediastinal, or hilar lymphadenopathy. Abdomen/Pelvis: Liver: Unremarkable. Gallbladder: Surgically absent. Spleen: Unremarkable. Adrenal glands: Unremarkable. Kidneys: Unremarkable. Pancreas: Unremarkable. Lymph nodes: No retroperitoneal, mesenteric, inguinal, or pelvic adenopathy by CT criteria. Bowel: Evaluation is limited without enteric contrast. Grossly unremarkable. Urinary bladder: Limited evaluation due to underdistention. No gross pathology. Reproductive structures: Unremarkable for patient`s age. Small amount of free fluid in the pelvis. Musculoskeletal: Visualized osseous structures demonstrate diffuse degenerative changes. IMPRESSION: 1. No acute aortic pathology. No evidence for aortic aneurysm, dissection, or intramural hematoma. 2. No acute pathology in the chest, abdomen, and pelvis. Please note that all CT scans at this facility use dose modulation, iterative reconstruction, and/or weight-based dosing when appropriate to reduce radiation dose to as low as reasonably achievable. Dictated by Jelani Kwan MD @ 12/21/2020 8:38:45 AM (Electronically Signed)
--- NOTE | 2020-12-21 13:36 | CT ---
EXAM DATE: 12/21/20 PATIENT'S AGE: 50 Patient: NAIF EVERETT Facility: [facility] Site . Site : [id number] Study: CT-Chest/Abd/Pelvis ANGIO-12/21/2020 7:45:46 AM Ordering Physician: Ishan Quezada Final Report: CLINICAL INFORMATION: 50-year-old with chest pain radiating to the back. TECHNIQUE: Noncontrast CT of the chest followed by intravenous CT angiogram of the chest, abdomen and pelvis were obtained. No enteric contrast was administered and therefore the study has decreased sensitivity for detection of bowel pathology. 3D and/or MIP angiographic reconstructions were performed on a separate independent workstation with concurrent supervision of the image post processing in order to further delineate the angiographic anatomy for accurate interpretation. Contrast: 100 mL of Isovue 370 intravenous contrast was injected uneventfully prior to image acquisition. Radiation Dose Estimate (Total Exam DLP): 568.1 mGy-cm. COMPARISON: None available. FINDINGS: CT Angiography Findings: Thoracic Aorta: Scattered atherosclerotic disease. No aneurysm or dissection. Great Vessels: Patent. Abdominal aorta: Scattered atherosclerotic disease. No aneurysm or dissection. Celiac axis: Patent. Superior mesenteric artery: Patent. Inferior mesenteric artery: Patent. LEFT Renal: Patent. RIGHT Renal: Patent. RIGHT lower extremity : Common iliac artery: Patent. Internal iliac artery: Patent. External iliac artery: Patent. Common femoral artery: Patent. LEFT lower extremity: Common iliac artery: Patent. Internal iliac artery: Patent. External iliac artery: Patent. Common femoral artery: Patent. Visceral Findings: Chest: Thyroid: Unremarkable Lungs: Mild bibasilar dependent atelectatic changes. No focal airspace opacities or pleural effusions. Heart/Pericardium: Unremarkable. Lymph Nodes: No significant axillary, mediastinal, or hilar lymphadenopathy. Abdomen/Pelvis: Liver: Unremarkable. Gallbladder: Surgically absent. Spleen: Unremarkable. Adrenal glands: Unremarkable. Kidneys: Unremarkable. Pancreas: Unremarkable. Lymph nodes: No retroperitoneal, mesenteric, inguinal, or pelvic adenopathy by CT criteria. Bowel: Evaluation is limited without enteric contrast. Grossly unremarkable. Urinary bladder: Limited evaluation due to underdistention. No gross pathology. Reproductive structures: Unremarkable for patient`s age. Small amount of free fluid in the pelvis. Musculoskeletal: Visualized osseous structures demonstrate diffuse degenerative changes. IMPRESSION: 1. No acute aortic pathology. No evidence for aortic aneurysm, dissection, or intramural hematoma. 2. No acute pathology in the chest, abdomen, and pelvis. Please note that all CT scans at this facility use dose modulation, iterative reconstruction, and/or weight-based dosing when appropriate to reduce radiation dose to as low as reasonably achievable. Dictated by Jelani Kwan MD @ 12/21/2020 8:38:45 AM Signed by: Jelani Kwan MD @12/21/2020 8:38:45 AM (Electronic Signature) Report Signed by Proxy. MTDD
== END 2020-12-21 10:20 | disposition home or self-care (01) ==
LOC: MW.ED 05:35
DX: R07.2 Precordial pain (principal); I10 Essential (primary) hypertension; M19.90 Unspecified osteoarthritis, unspecified site; E03.9 Hypothyroidism, unspecified; Z90.49 Acquired absence of other specified parts of digestive tract; Z91.048 Other nonmedicinal substance allergy status; Z79.899 Other long term (current) drug therapy
CPT/HCPCS: 36415; 71275; 74174; 80053; 83880; 84484; 85025; 85379; 93005; 99285; A9270; J7030; Q9967

== ENCOUNTER 2021-09-27 09:33 | Day surgery (SDC) | payer BC ==
[2021-09-27] MEDS ORDERED: Albuterol 0.083% 2.5 MG/3 ML Neb Soln NEB PRN (10:11)
[2021-09-27] MEDS ORDERED: Ondansetron 4 MG/2 ML SDV IVPUSH PRN (10:11)
[2021-09-27] MEDS ORDERED: Metoclopramide 10 MG/2 ML SDV IVPUSH PRN (10:11)
[2021-09-27] MEDS ORDERED: fentaNYL 50 MCG/ML SDV IVPUSH PRN (10:11)
[2021-09-27] MEDS ORDERED: Naloxone 0.4 MG/ML SDV IVPUSH PRN (10:11)
[2021-09-27] MEDS ORDERED: HYDROmorphone 1 MG/ML Syringe IVPUSH PRN (10:11)
[2021-09-27] MEDS ORDERED: Ketorolac 30 MG/ML SDV ONE (10:57)
[2021-09-27] MEDS ORDERED: Lidocaine 2% 5 ML SDV ONE (10:57)
[2021-09-27] MEDS ORDERED: Ondansetron 4 MG/2 ML SDV ONE (10:57)
[2021-09-27] MEDS ORDERED: Propofol 200 MG/20 ML SDV ONE (10:57)
[2021-09-27] MEDS ORDERED: fentaNYL 100 MCG/2 ML SDV ONE ×2 (10:57→11:54)
[2021-09-27] MEDS ORDERED: Dexamethasone 4 MG/ML 5 ML MDV ONE (10:57)
[2021-09-27] MEDS ORDERED: Midazolam 1 MG/ML 2 ML SDV ONE (10:57)
== END 2021-09-27 13:48 | disposition home or self-care (01) ==
LOC: MW.SDS 09:33
PROVIDERS: ATTEND Obstetrics & Gynecology
DX: N84.0 Polyp of corpus uteri (principal); E03.9 Hypothyroidism, unspecified; F41.9 Anxiety disorder, unspecified; I10 Essential (primary) hypertension; F32.A Depression, unspecified; Z98.890 Other specified postprocedural states; Z87.891 Personal history of nicotine dependence; Z79.899 Other long term (current) drug therapy
CPT/HCPCS: 36415; 58558; 84703; 85025; J1100; J1885; J2250; J2405; J2704; J3010; 00952

== ENCOUNTER 2024-01-15 18:59 | Emergency (ER) | payer BC ==
[2024-01-15] MEDS: Morphine 4 MG/ML Syringe IVPUSH STA (19:48)
[2024-01-15] MEDS: Ondansetron 4 MG/2 ML SDV IVPUSH STA (19:48)
[2024-01-15] MEDS: Sodium Chloride 0.9% 1,000 ML IV STA (19:48)
[2024-01-15 19:49] LABS: BASOPHILS ABSOLUTE AUTO 0.07 K/uL (0.00-0.20); BASOPHILS PERCENT AUTO 0.9 % (0.0-1.0); EOSINOPHILS ABSOLUTE AUTO 0.24 K/uL (0.00-0.45); EOSINOPHILS PERCENT AUTO 2.9 % (0.0-6.0); HEMATOCRIT 41.1 % (37.0-47.0); HEMOGLOBIN 14.1 g/dL (12.0-16.0); IMMATURE GRAN ABSOLUTE AUTO 0.02 K/uL (0.00-0.05); IMMATURE GRAN PERCENT AUTO 0.2 % (0.0-0.4); LYMPHOCYTES ABSOLUTE AUTO 1.92 K/uL (1.00-4.80); LYMPHOCYTES PERCENT AUTO 23.4 % (24.0-44.0); MEAN CORPUSCULAR HEMOGLOBIN 31.3 pg (28.0-32.0); MEAN CORPUSCULAR HGB CONC 34.3 g/dL (32.0-36.0); MEAN CORPUSCULAR VOLUME 91.1 fL (83.0-99.0); MEAN PLATELET VOLUME 10.7 fL (9.4-12.3); MONOCYTES ABSOLUTE AUTO 0.78 K/uL (0.00-0.80); MONOCYTES PERCENT AUTO 9.5 % (0.0-8.0); NEUTROPHILS ABSOLUTE AUTO 5.16 K/uL (1.80-7.70); NEUTROPHILS PERCENT AUTO 63.1 % (41.0-71.0); PLATELET COUNT,PLT 309 K/uL (150-400); RED BLOOD CELL COUNT 4.51 M/uL (4.10-5.30); WHITE BLOOD CELL COUNT,WBC 8.19 K/uL (3.9-11.3)
[2024-01-15 20:20] LABS: A/G RATIO 1.1 (0.9-1.6); BILIRUBIN TOTAL 0.4 mg/dL (0.2-1.0); CALCIUM 9.6 mg/dL (8.5-10.1); CREATININE 0.8 mg/dL (0.6-1.0); EST CRCL DRUG DOSING (CG) 68.61 mL/min; POTASSIUM,K 3.5 mmol/L (3.5-5.1); PROTEIN TOTAL,TP 7.7 g/dL (6.4-8.2)
[2024-01-15 20:29] LABS: CARBON DIOXIDE,CO2 30.3 mmol/L (21.0-32.0)
[2024-01-15 20:39] LABS: APPEARANCE,URINE CLEAR; BILIRUBIN,URINE NEGATIVE (NEGATIVE); COLOR,URINE YELLOW; GLUCOSE,URINE NEGATIVE (NEGATIVE); KETONES,URINE NEGATIVE (NEGATIVE); LEUKOCYTE ESTERASE,URINE NEGATIVE (NEGATIVE); NITRITE,URINE NEGATIVE (NEGATIVE); OCCULT BLOOD,URINE NEGATIVE (NEGATIVE); PH,URINE 6.5 (5.0-8.0); PROTEIN,URINE NEGATIVE (NEGATIVE); UROBILINOGEN,URINE 0.2 EU/dL (<2.0)
[2024-01-15] MEDS: Iopamidol 755 Mg/ML 100 ML Bottle IVPUSH ONE (21:45)
== END 2024-01-15 22:38 | disposition home or self-care (01) ==
LOC: MW.ED 18:59
DX: R10.32 Left lower quadrant pain (principal); I10 Essential (primary) hypertension; E03.9 Hypothyroidism, unspecified; Z90.49 Acquired absence of other specified parts of digestive tract; Z79.899 Other long term (current) drug therapy; Z91.09 Other allergy status, other than to drugs and biological substances
CPT/HCPCS: 36415; 74177; 80053; 81003; 83690; 85025; 96361; 96374; 96375; 99284; J2270; J2405; J7030; Q9967